=== PATIENT | female | born 1975 | race Caucasian/White ===

== ENCOUNTER 2023-01-09 16:25 | Emergency (ER) | payer SELFPAY ==
[2023-01-09 16:49] VITALS: BP 139/87; PULSE 103; RESP 14; TEMP 98.2; BMI 27.8
[2023-01-09] MEDS ORDERED: KETOROLAC TROMETHAMINE 30 MG/1 ML VIAL IVPUSH ONE (18:09)
[2023-01-09] MEDS ORDERED: METHOCARBAMOL 750 MG TABLET PO ONE (18:11)
[2023-01-09] MEDS ORDERED: ACETAMINOPHEN 500 MG TABLET (FP) PO ONE (18:11)
[2023-01-09] MEDS ORDERED: ACETAMINOPHEN 500 MG TABLET (FP) ONE (18:46)
[2023-01-09] MEDS ORDERED: KETOROLAC TROMETHAMINE 30 MG/1 ML VIAL ONE (18:46)
[2023-01-09] MEDS ORDERED: METHOCARBAMOL 500 MG TABLET ONE (18:46)
[2023-01-09 21:35] LABS: BASO % 0.8 % (0-2.0); EOS % 2.1 % (0-4.5); HEMOGLOBIN 11.8 GM/dL (10.7-15.3); LYMPH % 44.7 % (8-40); MCH 31.5 pg (25.7-33.7); MCHC 34.9 g/dl (32.0-36.0); MEAN CELL VOLUME 90.3 fl (80-96); MEAN PLT VOLUME 6.7 fl (7.5-11.1); MONO % 13.5 % (3.8-10.2); NEUT % 38.9 % (42.8-82.8); PLATELET COUNT 206 10^3/uL (134-434); RBC 3.76 M/mm3 (3.60-5.2); RDW 17.2 % (11.6-15.6); WHITE BLOOD COUNT 3.2 K/mm3 (4.0-10.0)
[2023-01-09 21:59] LABS: INR 1.12 (0.83-1.09)
[2023-01-09 22:01] LABS: ACTIVATED PTT 32.5 SECONDS (25.2-36.5)
[2023-01-09 22:12] LABS: POTASSIUM 4.5 mmol/L (3.5-5.1)
[2023-01-09 22:14] LABS: ALBUMIN 3.9 g/dl (3.4-5.0); CALCIUM 8.3 mg/dL (8.5-10.1)
[2023-01-09 22:15] LABS: BLOOD UREA NITROGEN 12.1 mg/dL (7-18)
[2023-01-09 22:18] LABS: CREATININE 0.6 mg/dL (0.55-1.3)
[2023-01-09 22:19] LABS: BILIRUBIN,TOTAL 0.4 mg/dL (0.2-1); TOT PROT 7.4 g/dl (6.4-8.2)
[2023-01-10] MEDS ORDERED: KETOROLAC TROMETHAMINE 30 MG/1 ML VIAL IVPUSH ONE (00:01)
[2023-01-10] MEDS ORDERED: ACETAMINOPHEN 325 MG TABLET (FP) PO ONE (00:01)
[2023-01-10] MEDS ORDERED: KETOROLAC TROMETHAMINE 30 MG/1 ML VIAL ONE (00:25)
[2023-01-10] MEDS ORDERED: ACETAMINOPHEN 325 MG TABLET (FP) ONE (00:25)
== END 2023-01-10 00:32 | disposition home or self-care (01) ==
LOC: JERFT 16:25
PROC: 3E0333Z Introduction of Anti-inflammatory into Peripheral Vein, Percutaneous Approach (ICD-10-PCS; principal; 2023-01-09)
PROC: 3E0333Z Introduction of Anti-inflammatory into Peripheral Vein, Percutaneous Approach (ICD-10-PCS; 2023-01-10)
DX: M25.511 Pain in right shoulder (principal); N63.10 Unspecified lump in the right breast, unspecified quadrant; R07.89 Other chest pain; M54.6 Pain in thoracic spine; R51.9 Headache, unspecified
CPT/HCPCS: 36415; 71046-TC-FY; 71275-TC; 73030-TC-RT-FY; 80053; 85025; 85379; 85610; 85730; 93005; 93010

== ENCOUNTER 2023-02-25 04:43 | Day surgery (SDC) | payer OTHER ==
[2023-02-21 10:31] VITALS: BMI 28.3
[2023-02-25 07:32] LABS: BASO % 0.6 % (0-2.0); EOS % 3.4 % (0-4.5); HEMATOCRIT 38.8 % (32.4-45.2); HEMOGLOBIN 12.8 GM/dL (10.7-15.3); LYMPH % 21.5 % (8-40); MEAN PLT VOLUME 7.5 fl (7.5-11.1); MONO % 7.9 % (3.8-10.2); NEUT % 66.6 % (42.8-82.8); PLATELET COUNT 294 10^3/uL (134-434); RBC 4.13 M/mm3 (3.60-5.2); RDW 15.9 % (11.6-15.6); WHITE BLOOD COUNT 7.8 K/mm3 (4.0-10.0)
[2023-02-25 08:24] LABS: INR 1.09 (0.83-1.09); PROTHROMBIN TIME (PATIENT) 12.6 SEC (9.7-13.0)
[2023-02-25] MEDS ORDERED: MIDAZOLAM HCL 2 MG/2 ML SINGLE DOSE VIAL ONE (09:33)
[2023-02-25] MEDS ORDERED: FENTANYL CITRATE/PF 50 MCG/ML VIAL ONE (09:33)
[2023-02-25] MEDS ORDERED: SODIUM CHLORIDE 500 ML IV SCH (10:25)
[2023-02-25] MEDS ORDERED: FENTANYL CITRATE/PF 50 MCG/ML VIAL IVPUSH ONE ×2 (10:35→10:45)
[2023-02-25] MEDS ORDERED: MIDAZOLAM HCL 2 MG/2 ML SINGLE DOSE VIAL IVPUSH ONE ×2 (10:35→10:45)
[2023-02-25 13:31] VITALS: BP 103/54; PULSE 74; RESP 18; TEMP 98
== END 2023-02-25 13:30 | disposition home or self-care (01) ==
LOC: JRADIR 04:43
PROVIDERS: ATTEND Internal Medicine Hematology & Oncology
PROC: 0PB43ZX Excision of Thoracic Vertebra, Percutaneous Approach, Diagnostic (ICD-10-PCS; principal; 2023-02-25)
DX: C79.51 Secondary malignant neoplasm of bone (principal)
CPT/HCPCS: 20225; 36415; 77012-TC; 84703; 85025; 85610; 88307-TC; 88311-TC; 88341-TC; 88342-TC